=== PATIENT | female | born 1985 | race Caucasian/White ===

== ENCOUNTER → 2019-08-25 | Outpatient (CLI) | payer OTHER | LOC: M SMT 15:05 → MERGE 15:05 | PROVIDERS: ATTEND Advanced Practice Midwife | DX: O36.80X1 Pregnancy with inconclusive fetal viability, fetus 1 (principal); Z3A.00 Weeks of gestation of pregnancy not specified ==

== ENCOUNTER → 2019-10-31 | Outpatient (REF) | payer OTHER ==
[2019-10-31 20:26] LABS: BASO % 0.4 % (0.0-1.0); EOS # 0.1 10^3/uL (0.0-0.5); EOS % 0.7 % (0.0-3.0); HEMATOCRIT 37.6 % (36.0-47.0); HEMOGLOBIN 12.5 g/dl (12.0-15.5); LYMPH # 2.4 10^3/uL (1.5-5.0); MEAN CORPUSCULAR HEMOGLOBIN 32.1 pg (27.0-33.0); MEAN CORPUSCULAR HGB CONC 33.2 g/dl (32.0-36.5); MEAN CORPUSCULAR VOLUME 96.7 fl (80.0-96.0); MONO # 0.6 10^3/uL (0.0-0.8); MONO % 5.9 % (0.0-5.0); NEUTROPHILS # 7.2 10^3/uL (1.5-8.5); NEUTROPHILS % 69.7 % (36.0-66.0); PLATELET COUNT, AUTOMATED 206 10^3/uL (150-450); RED BLOOD COUNT 3.89 10^6/uL (4.00-5.40); WHITE BLOOD COUNT 10.3 10^3/uL (4.0-10.0)
[2019-10-31 20:27] LABS: GLUCOSE CHALLENGE TEST 1 HOUR 100 MG/DL (LESS THAN 140)
[2019-10-31 22:25] LABS: CHLAMYDIA DNA AMPLIFICATION NEGATIVE (NEGATIVE); GC DNA AMPLIFICATION NEGATIVE (NEGATIVE)
[2019-11-02 10:04] LABS: RUBELLA IgG QUALITATIVE IMMUNE (IMMUNE)
[2019-11-02 10:33] LABS: HEPATITIS C VIRUS ABY INDEX 0.1 INDEX (<0.8); HIV 1&2 SCREEN CENTAUR NEGATIVE (NEGATIVE)
== END ==
LOC: M LABDRWAD 19:37 → MERGE 19:37
PROVIDERS: ATTEND Advanced Practice Midwife
DX: O99.211 Obesity complicating pregnancy, first trimester (principal); E66.9 Obesity, unspecified

== ENCOUNTER → 2019-11-21 | Outpatient (CLI) | payer OTHER ==
--- NOTE | 2019-11-21 13:38 | REP ---
Clinical: Anatomical evaluation. Comparison: 09/01/2019 . Findings: Examination demonstrates a single live intrauterine in breech presentation. motion is identified by technologist. Placenta is noted posterior and grade zero without evidence for placenta previa or abruption. Amniotic fluid volume is normal. Cervix measures 4.0 cm in length and appears closed. No evidence for nuchal cord. Gestational age by LMP 18 weeks 2 days with YISSEL 04/21/2020 . Gestational age by current measurements 18 weeks 6 days with YISSEL 04/17/2020 . FHR equals 151 beats per minute. BPD 4.2 cm 18 weeks 4 days HC 15.6 cm 18 weeks 4 days AC 13.8 cm 19 weeks 1 day FL 2.8 cm 18 weeks 4 days HL 2.8 cm 19 weeks 1 day HC/AC ratio 1.13 Estimated weight 263 grams ( 70th percentile). Anatomical assessment demonstrates normal structures including cranium, choroid plexus, cavum, cerebellum/posterior fossa, facial features, diaphragm, stomach, cord insertion/three-vessel cord, kidneys/bladder, spine, and extremities. Impression: 1. Single live intrauterine in breech presentation demonstrating appropriate interval growth. 2. Limited evaluation of the lungs and heart/ventricular outflow tracts noted. Remainder of the anatomical assessment is complete and normal. Electronically Signed by Aramis Meyer MD 11/21/2019 01:29 P
== END ==
LOC: M RAD 12:31
PROVIDERS: ATTEND Advanced Practice Midwife
DX: Z34.82 Encounter for supervision of other normal pregnancy, second trimester (principal); Z3A.18 18 weeks gestation of pregnancy

== ENCOUNTER → 2019-12-15 | Outpatient (CLI) | payer OTHER ==
--- NOTE | 2019-12-16 02:25 | REP ---
Clinical: Anatomical evaluation. Comparison: 11/21/2019 . Findings: Examination demonstrates a single live intrauterine in cephalic presentation. motion is identified by technologist. Placenta is noted posterior and grade zero without evidence for placenta previa or abruption. Amniotic fluid volume is normal. Cervix measures 4.5 cm in length and appears closed. No evidence for nuchal cord. Gestational age by LMP 21 weeks 5 days with YISSEL 04/21/2020 . Gestational age by current measurements 22 weeks 3 days with YISSEL 04/16/2020 . FHR equals 150 beats per minute. Estimated weight 490 grams ( 65th percentile). Anatomical assessment demonstrates normal structures including cranium, choroid plexus, cavum, cerebellum/posterior fossa, facial features, lungs, four-chamber heart/ventricular outflow tracts, diaphragm, stomach, cord insertion, kidneys/bladder, spine, and extremities. Impression: 1. Single live intrauterine in cephalic presentation demonstrating appropriate interval growth. 2. In conjunction with prior examination anatomical assessment is complete and within normal limits. Electronically Signed by Aramis Meyer MD 12/16/2019 02:18 A
== END ==
LOC: M RAD 15:00
PROVIDERS: ATTEND Advanced Practice Midwife
DX: Z34.82 Encounter for supervision of other normal pregnancy, second trimester (principal); Z36.89 Encounter for other specified antenatal screening; Z3A.21 21 weeks gestation of pregnancy

== ENCOUNTER → 2020-01-20 | Outpatient (REF) | payer OTHER ==
[2020-01-20 16:28] LABS: HEMATOCRIT 34.8 % (36.0-47.0); HEMOGLOBIN 11.8 g/dl (12.0-15.5); MEAN CORPUSCULAR HEMOGLOBIN 32.9 pg (27.0-33.0); MEAN CORPUSCULAR HGB CONC 33.9 g/dl (32.0-36.5); MEAN CORPUSCULAR VOLUME 96.9 fl (80.0-96.0); PLATELET COUNT, AUTOMATED 208 10^3/uL (150-450); RED BLOOD COUNT 3.59 10^6/uL (4.00-5.40); WHITE BLOOD COUNT 10.6 10^3/uL (4.0-10.0)
== END ==
LOC: M PLALAB 11:16
PROVIDERS: ATTEND Advanced Practice Midwife
DX: Z34.93 Encounter for supervision of normal pregnancy, unspecified, third trimester (principal); Z36.89 Encounter for other specified antenatal screening
CPT/HCPCS: 82950; 85027; 86850; 86900; 86901; J2790

== ENCOUNTER → 2020-03-28 | Outpatient (REF) | payer OTHER | LOC: M SFHCWAGY 17:48 | PROVIDERS: ATTEND Obstetrics & Gynecology | DX: O34.211 Maternal care for low transverse scar from previous cesarean delivery (principal) ==

== ENCOUNTER 2020-04-16 05:44 | Inpatient (IN) | payer OTHER ==
[~2020-04-16] VITALS: Ht 167.6 cm; Wt 123.7 kg
[2020-04-16] VITALS (43 sets, daily range): BP systolic 71–137; BP diastolic 39–83
[~2020-04-16 05:44] MED LIST: PREN1TAB18 PO
[2020-04-16] MEDS ORDERED: LR 1,000 ML IV SCH (06:19)
[2020-04-16] MEDS ORDERED: LACTATED RINGER'S 1000 ML IV STA (06:19)
[2020-04-16 06:29] LABS: HEMATOCRIT 34.5 % (36.0-47.0); HEMOGLOBIN 12.1 g/dl (12.0-15.5); MEAN CORPUSCULAR HEMOGLOBIN 32.9 pg (27.0-33.0); MEAN CORPUSCULAR HGB CONC 35.1 g/dl (32.0-36.5); MEAN CORPUSCULAR VOLUME 93.8 fl (80.0-96.0); PLATELET COUNT, AUTOMATED 194 10^3/uL (150-450); RED BLOOD COUNT 3.68 10^6/uL (4.00-5.40)
[2020-04-16] MEDS ORDERED: ceFAZolin SOD 2 GM in IV 1 EA IV ONE ×2 (06:30→16:45)
[2020-04-16] MEDS ORDERED: BICITRA 30ML SOLN UDC PO ONE (06:30)
[2020-04-16] MEDS ORDERED: OXYTOCIN 30 UNITS IN 0.9% NaCl 500ML IV BAG (J2590) As Ordered ONE ×2 (07:16→08:53)
[2020-04-16] MEDS ORDERED: dexameTHASONE 4 MG/ML 1ML VIAL (J1100 PER 1MG) As Ordered ONE ×2 (07:17→14:00)
[2020-04-16] MEDS ORDERED: OXYTOCIN INJ 10 UNITS/ML VIAL (J2590) As Ordered ONE ×3 (07:17→07:19)
[2020-04-16] MEDS ORDERED: ONDANSETRON 4MG/2ML VIAL As Ordered ONE ×2 (07:17→13:44)
[2020-04-16] MEDS ORDERED: PHENYLephrine HCL 500 MCG/5 ML (100MCG/ML) SYRINGE (J2370) As Ordered ONE ×2 (07:17→13:29)
[2020-04-16] MEDS ORDERED: ePHEDrine SULFATE 25 MG/5 ML(5MG/ML) SYRINGE As Ordered ONE (07:17)
[2020-04-16] MEDS ORDERED: MORPHINE PRES-FREE INJ 10 MG/10 ML VIAL (J2274) As Ordered ONE (07:21)
[2020-04-16] MEDS ORDERED: NALBUPHINE HCL 10 MG/ML AMP (J2300) IV PRN ×2 (07:50→10:00)
[2020-04-16] MEDS ORDERED: METOCLOPRAMIDE INJ 10MG/2ML VIAL (J2765 PER 1) IV PRN (07:50)
[2020-04-16] MEDS ORDERED: diphenhydrAMINE 50MG/ML VIAL (J1200) IV PRN ×3 (07:50→15:00)
[2020-04-16] MEDS ORDERED: ONDANSETRON 4MG/2ML VIAL IV PRN ×4 (07:50→14:45)
[2020-04-16] MEDS ORDERED: NALOXONE INJ 0.4MG/1ML VIAL (J2310 PER 1MG) IV PRN ×2 (07:50)
[2020-04-16] MEDS: OXYTOCIN DRIP 30 UNITS in IV 1 EA IV SCH ×2 (08:30→09:05)
[2020-04-16] MEDS ORDERED: RHOGAM 300 MCG (1500 IU) INJ (J2790) IM SCH (08:30)
[2020-04-16] MEDS ORDERED: PERCOCET 5MG/325MG TAB PO PRN (08:30)
[2020-04-16] MEDS ORDERED: DOCUSATE SODIUM 100 MG CAP PO PRN (08:30)
[2020-04-16] MEDS ORDERED: MEASLES,MUMPS,RUBELLA VACCINE INJ (MMR-II) (90707) SC SCH (08:30)
[2020-04-16] MEDS ORDERED: METHYLERGONOVINE MALEATE 0.2 MG/ML VIAL (J2210) IM STA (08:45)
[2020-04-16] MEDS ORDERED: miSOPROStol 200 MCG TAB (S0191) PR ONE (08:45)
[2020-04-16] MEDS ORDERED: miSOPROStol 200 MCG TAB (S0191) As Ordered ONE ×2 (08:50→13:16)
[2020-04-16] MEDS: miSOPROStol 200 MCG TAB (S0191) PR ONE (08:52)
[2020-04-16] MEDS: PRENATAL VITAMINS CHEWABLE TABLET PO SCH (09:00)
[2020-04-16] MEDS ORDERED: fentaNYL 100 MCG/2 ML INJECTION (J3010) As Ordered ONE ×3 (09:43→14:17)
[2020-04-16] MEDS: fentaNYL 100 MCG/2 ML INJECTION (J3010) IV PRN ×4 (09:48→10:03)
[2020-04-16] MEDS ORDERED: oxyCODONE 5MG TAB PO PRN ×2 (10:00→14:45)
[2020-04-16] MEDS ORDERED: MEPERIDINE INJ 25 MG/ML VIAL (J2175) IV PRN (10:00)
[2020-04-16] MEDS ORDERED: METHYLERGONOVINE MALEATE 0.2 MG/ML VIAL (J2210) IM ONE (10:00)
[2020-04-16] MEDS ORDERED: KETOROLAC 30 MG/ML 1ML VIAL IV SCH (10:00)
[2020-04-16] MEDS ORDERED: HYDROMORPHONE HCL 0.5 MG/ 0.5 ML SYRINGE (J1170 PER 1) IV PRN (10:00)
[2020-04-16] MEDS ORDERED: CARBOPROST TROMETHAMINE 250 MCG/ML AMP As Ordered ONE ×2 (11:44→13:17)
[2020-04-16] MEDS ORDERED: AMPICILLIN SOD/SULBACTAM SOD 3 GM in D5W MINI-BAG PLUS 100 ML IV ONE (12:00)
[2020-04-16] MEDS ORDERED: CARBOPROST TROMETHAMINE 250 MCG/ML AMP IM ONE ×2 (12:00→12:30)
[2020-04-16] MEDS ORDERED: NS 1,000 ML IV SCH (12:00)
[2020-04-16] MEDS ORDERED: LOPERAMIDE 2 MG CAPLET PO ONE (12:15)
[2020-04-16] MEDS: PERCOCET 5MG/325MG TAB PO PRN ×2 (12:17→18:04)
[2020-04-16] MEDS ORDERED: LOPERAMIDE 2 MG CAPLET PO PRN (12:30)
--- NOTE | 2020-04-16 12:46 | IPNPDOC ---
Progress Note Date of Service: April 16, 2020 Day#: 0 Progress Note SUBJECT: Patient is a 34-year-old female who is status post repeat section with a bilateral salpingectomy that occurred this morning-scheduled at 0730. Her EBL in the OR was 700 cc. She proceeded to have a hemorrhage in the recovery room. Her EBL in the recovery room was 1,100 cc. She received 1000 mg of Cytotec and a dose of Methergine IM. Before leaving the PACU she had an additional 251 cc. A call was placed to evaluate patient in due to decreased BP's and feeling dizzy. Her BP was 80/40 after being transferred to her bed in . Her pulse rate was in the 80-90's. She had received 1.5 units of blood in recovery (1/2 not transfused due to difficulty with transfuser). Dr. Bowser was also notified prior to my arrival. Two units of PRBC were ordered and infused rapidly with two more for hold. The blood was started at 11:35 prior to my arrival via verbal order. A vaginal sweep was done at 11:39 upon arrival and 600 cc of clots was extracted from the uterus after 3 sweeps. Her fundus prior to sweep was in the LUQ. After evacuation of clots her fundus was 1 above her umbilicus. Her fundus felt firm. Another cervical sweep was done due to the fundus rising in the abdomen: being 2-3 above umbilicus. A dose of Methergine 0.2 mg was given IM. A dose of IM Hemabate 250 mcg was ordered and given along with Imodium. Dr. Bowser was updated on status of patient and reported that he would be over to evaluate patient. Labs ordered stat for CBC and coags. Two more sweeps done and with each sweep a large amount of bright red blood was expressed with minimal to no clots. Another dose of Hemabate was ordered. Her vitals were stable after the initial sweep and continued to be stable. She reported feeling better quickly after the initial sweep. Dr. Bowser arrived at 12:49 and assessed the patient and still had large amounts of blood extracted with a vaginal exam/sweep. No clots noted. She had a total EBL of 3752 cc from OR, recovery, and . He discussed rec ommendations along with risks and alternatives of going back into the OR. OBJECTIVE: VITAL SIGNS: Now within normal limits, afebrile. Alert and oriented times three. Breath sounds clear to auscultation. Regular rate and rhythm. Heart rate: Regular rate and rhythm, no murmurs, rubs or gallops. Abdomen: Fundus firm at 1/u. Large amount of lochia. ASSESSMENT: hemorrhage post section-acute blood loss PLAN: 1. Patient to OR per Dr. Bowser. VS, I&O, 24H, Fishbone Vital Signs/I&O Vital Signs Date Time Temp Pulse Resp B/P (MAP) Pulse Ox O2 Delivery O2 Flow Rate FiO2 04/16/20 12:17 18 04/16/20 10:03 100 04/16/20 06:39 91 123/76 (92) 04/16/20 06:14 97.4 Room Air Laboratory Data 24H LABS Laboratory Tests 2 04/15/20 19:29: Serology Scanned Report Hepatitis B Testing 04/16/20 06:11: Nucleated Red Blood Cells % (auto) 0.0, Syphilis Serology NONREACTIVE CBC/BMP Laboratory Tests 04/16/20 06:11 KIRILL PETERSON CNM April 16, 2020 12:46
[2020-04-16] MEDS ORDERED: MIDAZOLAM INJ 2MG/2ML VIAL (J2250 PER 1MG) As Ordered ONE (13:03)
[2020-04-16] MEDS ORDERED: propofoL 200 MG/20 ML VIAL As Ordered ONE (13:04)
[2020-04-16 13:16] LABS: HEMATOCRIT 32.6 % (36.0-47.0); HEMOGLOBIN 11.2 g/dl (12.0-15.5); MEAN CORPUSCULAR HEMOGLOBIN 32.1 pg (27.0-33.0); MEAN CORPUSCULAR HGB CONC 34.4 g/dl (32.0-36.5); MEAN CORPUSCULAR VOLUME 93.4 fl (80.0-96.0); PLATELET COUNT, AUTOMATED 176 10^3/uL (150-450); RED BLOOD COUNT 3.49 10^6/uL (4.00-5.40); WHITE BLOOD COUNT 22.8 10^3/uL (4.0-10.0)
[2020-04-16] MEDS ORDERED: METHYLERGONOVINE MALEATE 0.2 MG/ML VIAL (J2210) As Ordered ONE (13:16)
[2020-04-16 13:26] LABS: INR 1.26; PROTHROMBIN TIME 15.5 SECONDS (11.8-14.0)
[2020-04-16 13:27] LABS: PARTIAL THROMBOPLASTIN TIME 33.7 SECONDS (25.0-38.4)
[2020-04-16] MEDS ORDERED: ROCURONIUM BROMIDE 50 MG/5 ML VIAL As Ordered ONE (13:28)
[2020-04-16] MEDS ORDERED: SUCCINYLCHOLINE 100 MG/5 ML SYRINGE (J0330) As Ordered ONE (13:29)
[2020-04-16] MEDS ORDERED: CALCIUM CHLORIDE 10% 1 GM/10 ML SYR As Ordered ONE (13:29)
[2020-04-16] MEDS ORDERED: ACETAMINOPHEN 1000MG 100ML IV BTL (OFIRMEV) (J0131 PER 10MG) As Ordered ONE (13:49)
[2020-04-16] MEDS ORDERED: SUGAMMADEX SODIUM 500 MG/5 ML VIAL (BRIDION) As Ordered ONE (13:58)
[2020-04-16] MEDS ORDERED: diphenhydrAMINE 50MG/ML VIAL (J1200) As Ordered ONE (14:42)
[2020-04-16] MEDS ORDERED: fentaNYL 100 MCG/2 ML INJECTION (J3010) IV PRN (14:45)
[2020-04-16] MEDS ORDERED: HYDROMORPHONE HCL 0.5 MG/ 0.5 ML SYRINGE (J1170 PER 1) As Ordered ONE ×2 (14:49→15:03)
[2020-04-16] MEDS: HYDROMORPHONE HCL 0.5 MG/ 0.5 ML SYRINGE (J1170 PER 1) IV PRN ×4 (14:54→15:23)
[2020-04-16] MEDS ORDERED: oxyCODONE 5MG TAB As Ordered ONE (15:03)
[2020-04-16] MEDS: LR 1,000 ML IV SCH ×2 (16:05→16:30)
[2020-04-16] MEDS ORDERED: MORPHINE 4 MG/ML 1ML VIAL/SYRINGE (J2270) IV PRN (16:15)
[2020-04-16 19:23] LABS: HEMOGLOBIN 8.5 g/dl (12.0-15.5); MEAN CORPUSCULAR HEMOGLOBIN 32.4 pg (27.0-33.0); MEAN CORPUSCULAR HGB CONC 35.4 g/dl (32.0-36.5); MEAN CORPUSCULAR VOLUME 91.6 fl (80.0-96.0); PLATELET COUNT, AUTOMATED 162 10^3/uL (150-450); RED BLOOD COUNT 2.62 10^6/uL (4.00-5.40); WHITE BLOOD COUNT 20.8 10^3/uL (4.0-10.0)
[2020-04-16 19:40] LABS: BLOOD UREA NITROGEN 8 MG/DL (7-18); CALCIUM LEVEL 7.5 MG/DL (8.5-10.1); CARBON DIOXIDE LEVEL 23 MEQ/L (21-32); CHLORIDE LEVEL 109 MEQ/L (98-107); CREATININE FOR GFR 0.57 MG/DL (0.55-1.30); GLOMERULAR FILTRATION RATE > 60.0 (>60); GLUCOSE, FASTING 103 MG/DL (70-100); POTASSIUM SERUM 4.3 MEQ/L (3.5-5.1); SODIUM LEVEL 137 MEQ/L (136-145)
[2020-04-17] VITALS (23 sets, daily range): BP systolic 103–140; BP diastolic 53–66
[2020-04-17] MEDS: LR 1,000 ML IV SCH ×3 (02:07→13:27)
[2020-04-17] MEDS: PERCOCET 5MG/325MG TAB PO PRN ×2 (03:09→13:26)
[2020-04-17 06:36] LABS: MEAN CORPUSCULAR HEMOGLOBIN 32.2 pg (27.0-33.0); MEAN CORPUSCULAR HGB CONC 34.6 g/dl (32.0-36.5); PLATELET COUNT, AUTOMATED 153 10^3/uL (150-450); RED BLOOD COUNT 1.71 10^6/uL (4.00-5.40)
[2020-04-17 06:40] LABS: HEMATOCRIT 15.9 % (36.0-47.0); HEMOGLOBIN 5.5 g/dl (12.0-15.5)
[2020-04-17] MEDS ORDERED: NS 1,000 ML IV SCH (06:44)
[2020-04-17 07:00] LABS: ALBUMIN 1.7 GM/DL (3.2-5.2); ALT/SGPT 11 U/L (12-78); BILIRUBIN,TOTAL 0.2 MG/DL (0.2-1.0); BLOOD UREA NITROGEN 10 MG/DL (7-18); CALCIUM LEVEL 6.8 MG/DL (8.5-10.1); CARBON DIOXIDE LEVEL 22 MEQ/L (21-32); CHLORIDE LEVEL 108 MEQ/L (98-107); GLOMERULAR FILTRATION RATE > 60.0 (>60); GLUCOSE, FASTING 88 MG/DL (70-100); POTASSIUM SERUM 4.2 MEQ/L (3.5-5.1); SODIUM LEVEL 136 MEQ/L (136-145); TOTAL PROTEIN 4.1 GM/DL (6.4-8.2)
--- NOTE | 2020-04-17 07:31 | IPN ---
DATE: 04/16/2020 I was called to the recovery room at 8:45 a.m. and informed the patient had a hemorrhage, approximately 1000 mL. At the same time, it was noted that her blood pressure had been low, approximately 60s over 30s. Anesthesia administered phenylephrine. IV fluids were bolused. The patient was given IM Methergine at 8:50 a.m. and 1000 mcg of Cytotec at 8:52 a.m. There was immediate call for blood products. At 9:02, she received a first unit of blood and at 9:31 the second unit of blood. She received a total of 2 units of blood in the post anesthesia care unit (PACU). At that point, the patient appeared stable. Her uterus was firm. No further active bleeding and the hemorrhage had resolved. ELINOR
--- NOTE | 2020-04-17 07:38 | IPN ---
DATE: 04/16/2020 The nurse called the journalism intern Shalini Berg and notified her that the patient was feeling lightheaded. The patient was also noted to have blood pressure of 84/48. The patient was immediately given IV fluids. Shalini Berg arrived on the scene and performed a sweep for 600 mL of blood. The uterus was firm. The patient was ordered Methergine and subsequently ordered Hemabate. Methergine was administered at 11:50 a.m. A total of 3 units of packed red blood cells were ordered and began infusing immediately. I arrived on the scene shortly thereafter and examined the patient and was able to express multiple clots as well as gushes of blood with gentle fundal massage. Decision was made at that point to proceed to the operating room. Total estimated blood loss was over 3000 mL at that time. Consents were signed in preparation for laparotomy and exploration. [facility]
[2020-04-17] MEDS: PRENATAL VITAMINS CHEWABLE TABLET PO SCH (08:47)
[2020-04-17] MEDS: IBUPROFEN 800 MG TAB PO PRN ×2 (08:48→16:30)
[2020-04-17] MEDS: SIMETHICONE 80 MG CHEW TAB PO PRN (08:48)
[2020-04-17] MEDS ORDERED: IBUPROFEN 800 MG TAB PO SCH (12:00)
--- NOTE | 2020-04-17 14:12 | IPNPDOC ---
Progress Note Date of Service: April 17, 2020 Day#: 1 Progress Note SUBJECT: Patient is a 34-year-old female who presented for a repeat section with a tubal ligation due to satisfied parity. She proceeded to have excessive bleeding resulting in multiple administration of uterotonics and 5 units of PRBC along with 2 units of FFP. She was taken back into the OR due to the inability to control her uterine bleeding. A hysterectomy was performed at that time. She reports she is doing well except for a constant cramp/pain in her RUQ. She has received Percocet and IV Morphine to help with pain but patient reports it is barely touching the pain. She currently denies feeling dizzy but does report fatigue. She has been able to keep fluids and food down. She has not been out of bed, still has IV fluids running due to minimal urine output, and has her urinary catheter in place. She is breast feeding without difficulty. OBJECTIVE: VITAL SIGNS: Within normal limits, afebrile, labs: see below. . Alert and oriented times three. She does appear pale. Breath sounds clear to auscultation. Heart rate: Regular rate and rhythm, no murmurs, rubs or gallops. Abdomen: Not distended. Dressing intact. Scant vaginal lochia. ASSESSMENT: Day 1 postoperative c/s complicated by PPH from uterine defect resulting in hysterectomy PLAN: 1. Simethicone and Motrin ordered for pain management. 2. 3 units of blood ordered. 3. Patient may have catheter removed this afternoon after the blood has been transfused and may get out of bed. 4. Continue supportive nursing care and pain management. VS, I&O, 24H, Josiasbone Vital Signs/I&O Vital Signs Date Time Temp Pulse Resp B/P (MAP) Pulse Ox O2 Delivery O2 Flow Rate FiO2 04/17/20 13:30 98.4 104 20 117/65 (82) 99 Room Air 04/16/20 14:35 10 I&O- Last 24 Hours up to 6 AM 04/17/20 06:00 Intake Total 4895 ml Output Total 5547 ml Balance -652 ml Laboratory Data 24H LABS Laboratory Tests 2 04/16/20 18:58: Nucleated Red Blood Cells % (auto) 0.0, Anion Gap 5L, Glomerular Filtration Rate > 60.0, Calcium Level 7.5L 04/17/20 06:19: Nucleated Red Blood Cells % (auto) 0.0, Anion Gap 6L, Glomerular Filtration Rate > 60.0, Calcium Level 6.8L, Total Bilirubin 0.2, Aspartate Amino Transf (AST/SGOT) 15, Alanine Aminotransferase (ALT/SGPT) 11L, Alkaline Phosphatase 84, Total Protein 4.1L, Albumin 1.7L, Albumin/Globulin Ratio 0.7L CBC/BMP Laboratory Tests 04/16/20 18:58 04/17/20 06:19 KIRILL PETERSON CNM April 17, 2020 14:12
[2020-04-17 18:29] LABS: HEMOGLOBIN 7.3 g/dl (12.0-15.5); MEAN CORPUSCULAR HEMOGLOBIN 31.9 pg (27.0-33.0); MEAN CORPUSCULAR HGB CONC 34.8 g/dl (32.0-36.5); MEAN CORPUSCULAR VOLUME 91.7 fl (80.0-96.0); PLATELET COUNT, AUTOMATED 126 10^3/uL (150-450); RED BLOOD COUNT 2.29 10^6/uL (4.00-5.40); WHITE BLOOD COUNT 10.2 10^3/uL (4.0-10.0)
[2020-04-17] MEDS ORDERED: diphenhydrAMINE 25MG CAP PO ONE (19:00)
--- NOTE | 2020-04-17 19:38 | RO ---
DATE OF PROCEDURE: 04/16/2020 PREPROCEDURE DIAGNOSIS: 39 weeks, prior section, breech presentation. POSTPROCEDURE DIAGNOSIS: 39 weeks, prior section, breech presentation. PROCEDURE: Repeat low transverse section and bilateral tubal ligation. SURGEON: Osmin Bowser MD HOUSEHOLD MANAGER: Shalini Berg CNM ANESTHESIA: Spinal. ESTIMATED BLOOD LOSS: 700 mL. URINE OUTPUT: 400 mL. IV FLUIDS: 1500 mL Lactated Ringer's (LR) FINDINGS: 8 pound 4 ounce, 3740 gram male . scores 9 and 9. Rosalba breech position. Mild uterine septum present, baby's head in the left uterine horn. Normal ovaries and fallopian tubes. DESCRIPTION OF PROCEDURE: The patient was taken to the operating room where spinal anesthesia was induced. She was prepped and draped in a sterile fashion in the supine position. A Bowman catheter was placed. A Pfannenstiel skin incision was made with a scalpel, carried through to the fascia. The fascia was nicked and extended. The fascia was dissected off the rectus muscles. Peritoneal cavity was entered. The infant was delivered from the rosalba breech position using standard maneuvers without difficulty. The cord was doubly clamped and cut. The was handed off to awaiting nurses. The placenta was expressed. The uterus was exteriorized and cleared of clots and debris. The uterine incision was closed with #0 Vicryl in a running locked fashion. A second imbricating layer of #0 Vicryl was placed. Attention turned to the fallopian tubes. The fallopian tubes were grasped at their mid portion with a Jose Armando clamp. A window was created in the broad ligament. A free tie of #3-0 chromic was placed around a segment of tube on either side of the Broadus clamp. A knuckle of tube was excised bilaterally and sent to pathology. The uterus was placed back in the abdominal cavity. The peritoneum was closed with #2-0 Vicryl in a running fashion. The fascia was closed with #0 Vicryl in a running fashion. The fascia was closed with #0 Vicryl. The deep layer was irrigated and closed with #2-0 chromic. The skin was closed with #4-0 Monocryl subcuticular sutures. Sponge, instrument, and needle counts were correct. Shalini Berg CNM assisted throughout the procedure. She helped create each layer of the incision. She helped deliver the fetus and closed all subsequent layers. She was indispensable to the successful completion of the procedure. ELINOR
--- NOTE | 2020-04-18 00:01 | RO ---
DATE OF PROCEDURE: 04/16/2020 PREPROCEDURE DIAGNOSIS: hemorrhage. POSTPROCEDURE DIAGNOSIS: hemorrhage. PROCEDURE: Exploratory laparotomy, supracervical hysterectomy. SURGEON: Osmin Bowser MD TRAVEL CLERK: Deidre Jennings MD ANESTHESIA: General endotracheal. ESTIMATED BLOOD LOSS: 500 mL. FLUIDS: Two units of fresh frozen plasma. One unit of packed red blood cells. FINDINGS: Enlarged uterus with expansion of the left uterine horn of a subseptate uterus, a thin myometrium in the area of the left cornua with extensive blood clot coming from that region. No intraperitoneal bleeding at all. DESCRIPTION OF PROCEDURE: The patient was taken to the operating room where general endotracheal anesthesia was induced. She was prepped and draped in the sterile fashion in the supine position. A Bowman catheter was already in place. Intraoperatively, the patient was noted to still have large amounts of bleeding vaginally. The uterus was enlarged. The prior section incision was opened, sutures were removed, the peritoneal cavity was entered, the uterus was exteriorized. Decision was made at that point to perform supracervical hysterectomy. The round ligaments were clamped with Patrica clamps, incised and suture ligated. A window was created in the broad ligament, utero-ovarian ligaments were cross-clamped with Kerwin clamps and incised. Uterine vessels were then clamped to the level of the internal os. The uterine vessels were incised and suture ligated. A supracervical hysterectomy was performed with a scalpel and amputating the lower uterine segment and uterus. The vaginal cuff was then closed with #0 Vicryl in a running locked fashion. A second imbricating layer was placed. The remaining pedicles were then suture ligated from the utero-ovarian ligaments. The pelvis was observed and good hemostasis noted. All sponge and instruments were removed. The peritoneum was closed with #2-0 Vicryl in a running fashion. The fascia was closed with #0 Vicryl, and the deep layer was irrigated and closed with #2-0 chromic. The skin was closed with #4-0 Monocryl subcuticular sutures. Sponge, instrument and needle counts were correct. Deidre Jennings MD assisted throughout the procedure. He helped to open the incision, he helped perform the hysterectomy and then subsequently closed. He was indispensable to the successful performance of the procedure.
[2020-04-18 01:00] VITALS: BP 121/57
[2020-04-18 02:10] VITALS: BP 136/61
[2020-04-18 06:16] VITALS: BP 131/63
[2020-04-18 06:56] LABS: HEMATOCRIT 22.9 % (36.0-47.0); HEMOGLOBIN 7.9 g/dl (12.0-15.5); MEAN CORPUSCULAR HEMOGLOBIN 31.5 pg (27.0-33.0); MEAN CORPUSCULAR HGB CONC 34.5 g/dl (32.0-36.5); MEAN CORPUSCULAR VOLUME 91.2 fl (80.0-96.0); PLATELET COUNT, AUTOMATED 104 10^3/uL (150-450); RED BLOOD COUNT 2.51 10^6/uL (4.00-5.40); WHITE BLOOD COUNT 8.3 10^3/uL (4.0-10.0)
[2020-04-18] MEDS: IBUPROFEN 800 MG TAB PO PRN ×2 (08:12→15:25)
[2020-04-18] MEDS: PRENATAL VITAMINS CHEWABLE TABLET PO SCH (08:12)
[2020-04-18 10:00] VITALS: BP 128/70
[2020-04-18 14:00] VITALS: BP 126/66
[2020-04-18 14:01] LABS: HEMATOCRIT 24.1 % (36.0-47.0); HEMOGLOBIN 8.2 g/dl (12.0-15.5); MEAN CORPUSCULAR HEMOGLOBIN 31.4 pg (27.0-33.0); MEAN CORPUSCULAR VOLUME 92.3 fl (80.0-96.0); PLATELET COUNT, AUTOMATED 122 10^3/uL (150-450); RED BLOOD COUNT 2.61 10^6/uL (4.00-5.40); WHITE BLOOD COUNT 9.2 10^3/uL (4.0-10.0)
[2020-04-18] MEDS: SIMETHICONE 80 MG CHEW TAB PO PRN (15:25)
[2020-04-18 20:00] VITALS: BP 136/74
[2020-04-19 05:45] VITALS: BP 136/84
[2020-04-19] MEDS ORDERED: IBUP80TA PO (08:45)
[2020-04-19] MEDS ORDERED: OXYC1TAB23 PO (08:45)
[2020-04-19] MEDS ORDERED: DOCU100C16 PO (08:45)
[2020-04-19] MEDS: PRENATAL VITAMINS CHEWABLE TABLET PO SCH (09:00)
--- NOTE | 2020-04-21 16:32 | DSES ---
DATE OF ADMISSION: 04/16/2020 DATE OF DISCHARGE: 04/19/2020 HISTORY: A 34-year-old G2, P1 female at 39 weeks gestation presents for a repeat section. She has had one prior section. Fetus was also known to be in the breech presentation. HOSPITAL COURSE: On 04/16/2020, patient underwent repeat section and bilateral tubal ligation, for an 8-pound 4-ounce male in the rosalba breech position. There was noted to be uterine septum present, the baby's head left uterine horn. The procedure was without complication. Fifteen minutes after the patient had been in the recovery room she was noted to have a blood pressure of 60/30 range. A nurse was able to express approximately 1000 mL of blood clot at that time. The patient received Methergine intramuscular (IM) as well as Cytotec per rectum. She already had Pitocin running at that point. I presented to the bedside and immediately called for 2 units of blood. She received the 2 units of blood, and her blood pressure stabilized and appeared to have no further bleeding. She was deemed stable at that point. Two hours later, the patient was in the unit and was noted to have low blood pressure in the 80s over 40s range as well as patient felt symptomatic. She had some dizziness. Patient was evaluated first by our nurse welfare interviewer and expressed about 600 mL of clot. She continued bleeding with any pressure of the fundus. Upon evaluation of patient by myself, she was noted to still have profuse bleeding. She was in the process of getting more units of blood transfused. The decision was made at that point to proceed to the operating room for exploration and evaluation. All options were considered to stop the bleeding. Upon presentation to the operating room, patient was still bleeding profusely. Uterus noted to be enlarged and filled with clots. She was starting to become coagulopathic, as evidenced by lack of blood clotting during the exploration, which was mild at that point. Her INR returned at 1.2. Decision was made to perform hysterectomy as the best way to stop bleeding and reduce any further blood loss. Supracervical hysterectomy was performed without difficulty in an expeditious fashion. Patient received fresh frozen plasma (FFP) at that time as well. The patient remained stable; however, she did require transfuse of more units of blood. This was no surprise, as she was still equilibrating. In total, she received 10 units of packed red blood cells and 2 units of FFP along with a large amount of crystalloid. Her final hemoglobin was 8.2 grams per deciliter. She had adequate return of bladder and bowel function, and she was no longer symptomatic. She was deemed stable for discharge on postoperative day #3. ADMISSION DIAGNOSIS: , term, prior section. DISCHARGE DIAGNOSIS: Delivered. PROCEDURE: Repeat low transverse section and bilateral tubal sterilization. This was followed by supracervical hysterectomy via laparotomy on the same day. COMPLICATIONS: hemorrhage. PLAN: Postoperative restrictions reviewed with the patient. She will be discharged home. Recommend iron supplementation to improve hemoglobin. She will followup in the office as scheduled. ELINOR
== END 2020-04-19 11:05 | disposition home or self-care (01) | DRG 784 ==
LOC: M LDI 05:44 → M OBS 10:52
PROVIDERS: ADMIT Specialist; ATTEND Specialist
PROC: 0UL70DZ Occlusion of Bilateral Fallopian Tubes with Intraluminal Device, Open Approach (ICD-10-PCS; 2020-04-16)
PROC: 0UT90ZL Resection of Uterus, Supracervical, Open Approach (ICD-10-PCS; 2020-04-16)
PROC: 30233K1 Transfusion of Nonautologous Frozen Plasma into Peripheral Vein, Percutaneous Approach (ICD-10-PCS; 2020-04-16)
PROC: 30233N1 Transfusion of Nonautologous Red Blood Cells into Peripheral Vein, Percutaneous Approach (ICD-10-PCS; 2020-04-16)
PROC: 10D00Z1 Extraction of Products of Conception, Low, Open Approach (ICD-10-PCS; principal; 2020-04-16 07:30)
DX: O34.211 Maternal care for low transverse scar from previous cesarean delivery (principal); O72.1 Other immediate postpartum hemorrhage; Z37.0 Single live birth; Z30.2 Encounter for sterilization; Z3A.39 39 weeks gestation of pregnancy

== ENCOUNTER → 2021-06-08 | Outpatient (REF) | payer OTHER ==
[~2021-06-08] MED LIST changes: +DOCU100C16 PO; +IBUP80TA PO; +OXYC1TAB23 PO
== END ==
LOC: M LAB REF 17:59
PROVIDERS: ATTEND Physician Assistant Medical
DX: N39.0 Urinary tract infection, site not specified (principal)

== ENCOUNTER → 2022-12-05 | Outpatient (CLI) | payer OTHER ==
[2022-12-05 10:42] LABS: BASO # 0.1 10^3/uL (0.0-0.2); BASO % 1.1 % (0.0-1.0); EOS # 0.3 10^3/uL (0.0-0.5); EOS % 2.9 % (0.0-3.0); HEMATOCRIT 42.3 % (36.0-47.0); HEMOGLOBIN 13.8 g/dl (12.0-15.5); LYMPH # 2.4 10^3/uL (1.5-5.0); LYMPH % 25.4 % (24.0-44.0); MEAN CORPUSCULAR HEMOGLOBIN 31.2 pg (27.0-33.0); MEAN CORPUSCULAR HGB CONC 32.6 g/dl (32.0-36.5); MEAN CORPUSCULAR VOLUME 95.7 fl (80.0-96.0); MONO # 0.6 10^3/uL (0.0-0.8); MONO % 6.7 % (2.0-8.0); NEUTROPHILS # 5.9 10^3/uL (1.5-8.5); NEUTROPHILS % 63.7 % (36.0-66.0); PLATELET COUNT, AUTOMATED 234 10^3/uL (150-450); RED BLOOD COUNT 4.42 10^6/uL (4.00-5.40); WHITE BLOOD COUNT 9.3 10^3/uL (4.0-10.0)
[2022-12-05 10:49] LABS: ERYTHROCYTE SEDIMENTATION RATE 19 mm/hr (0-20)
[2022-12-05 11:01] LABS: C REACTIVE PROTEIN QUANTITATIV < 0.40 MG/DL (<1.0)
[2022-12-05 11:02] LABS: ALBUMIN 3.9 G/DL (3.2-5.2); ALKALINE PHOSPHATASE 67 U/L (46-116); ALT/SGPT 21 U/L (7.0-40); AST/SGOT 17 U/L (<34); BILIRUBIN,TOTAL 0.4 MG/DL (0.3-1.2); BLOOD UREA NITROGEN 9 MG/DL (9-23); CALCIUM LEVEL 9.5 MG/DL (8.5-10.1); CARBON DIOXIDE LEVEL 28 MMOL/L (20-31); CHLORIDE LEVEL 105 MMOL/L (98-107); CREATININE FOR GFR 0.65 MG/DL (0.55-1.30); GLOMERULAR FILTRATION RATE > 60.0 (>60); GLUCOSE, FASTING 76 MG/DL (60-100); POTASSIUM SERUM 4.8 MMOL/L (3.5-5.1); SODIUM LEVEL 138 MMOL/L (136-145); TOTAL PROTEIN 6.6 G/DL (5.7-8.2)
== END ==
LOC: M WUC 08:29
PROVIDERS: ATTEND Physician Assistant
DX: R10.10 Upper abdominal pain, unspecified (principal)

== ENCOUNTER → 2024-09-21 | Outpatient (REF) | payer OTHER | LOC: M LAB REF 11:43 | PROVIDERS: ATTEND Physician Assistant | DX: R30.0 Dysuria (principal); M79.10 Myalgia, unspecified site ==